=== PATIENT | female | born 1960 | race Caucasian/White ===

== ENCOUNTER 2017-08-19 16:07 | Outpatient (CLI) | payer OTHER ==
[2017-08-19 17:19] LABS: Hemoglobin 11.4 g/dL (12.0-16.0); Mean Corpuscular HGB CONC 33.2 g/dL (32.0-36.0); Mean Corpuscular Hemoglobin 31.4 pg (27.0-31.0); Mean Corpuscular Volume 94.5 fl (81.0-99.0); Mean Platelet Volume 6.9 fL (7.4-10.4); Platelet Count 301 thou/uL (130-400); RBC Distribution Width 11.2 % (11.5-14.5); Red Blood Cell (RBC) Count 3.63 mill/uL (4.20-5.40); White Blood Cell (WBC) Count 6.2 thou/uL (4.8-10.8)
[2017-08-19 17:43] LABS: ALT (SGPT) 15 U/L (8-55); AST (SGOT) 18 U/L (5-34); Albumin 4.2 g/dL (3.5-5.0); Alkaline Phosphatase 40 U/L (40-150); Anion Gap 10 mmol/L (10-20); BUN (Urea Nitrogen) 12 mg/dL (9.8-20.1); Bilirubin, Total 0.3 mg/dL (0.2-1.2); Calc. Creatinine Clearance 0 mL/min (70-130); Calcium 9.4 mg/dL (7.8-10.44); Carbon Dioxide 28 mmol/L (22-29); Chloride 102 mmol/L (98-107); Estimated GFR-MDRD 61; Globulin 2.8 g/dL (2.4-3.5); Glucose 85 mg/dL (70-105); Potassium 4.3 mmol/L (3.5-5.1); Sodium 136 mmol/L (136-145)
--- NOTE | 2017-08-20 15:58 | EKG ---
Test Reason : Blood Pressure : / mmHG Vent. Rate : 071 BPM Atrial Rate : 071 BPM P-R Int : 152 ms QRS Dur : 080 ms QT Int : 386 ms P-R-T Axes : 027 084 054 degrees QTc Int : 419 ms Normal sinus rhythm Moderate voltage criteria for LVH, may be normal variant Borderline ECG Confirmed by JIMENA CAMACHO ([id number]) on 08/20/2017 3:58:22 PM Referred By: JADIEL Confirmed By:JIMENA CAMACHO
== END 2017-08-19 16:08 | disposition home or self-care (01) ==
LOC: EDSTATUS 16:07 → LABBT 16:07
PROVIDERS: ATTEND Orthopaedic Surgery
DX: Z01.818 Encounter for other preprocedural examination (principal); S62.102A Fracture of unspecified carpal bone, left wrist, initial encounter for closed fracture
CPT/HCPCS: 80053; 85027; 93005; 93010

== ENCOUNTER 2017-08-20 07:25 | Day surgery (SDC) | payer OTHER ==
[2017-08-19 16:16] VITALS: BMI 21.3
[2017-08-20] MEDS ORDERED: CEFAZOLIN/Water 2 GM/20 ML SYRINGE ONE (08:23)
[2017-08-20] MEDS ORDERED: Fentanyl 100 MCG/2 ML VIAL ONE (08:36)
[2017-08-20] MEDS ORDERED: Midazolam HCl 2 mg/2 ml Vial ONE (08:36)
[2017-08-20] MEDS ORDERED: Ondansetron HCl/PF 4 MG/2 ML Vial IVP PRN (08:58)
[2017-08-20] MEDS ORDERED: HYDROcodone/Acetaminophen 10/325 mg Tablet PO PRN ×2 (08:58)
[2017-08-20] MEDS ORDERED: Promethazine HCl 25 MG/ML VIAL IM PRN (08:58)
[2017-08-20] MEDS ORDERED: Zolpidem Tartrate 5 MG TAB PO PRN (08:58)
[2017-08-20] MEDS ORDERED: traMADol HCl 50 MG TAB PO PRN ×2 (08:58)
[2017-08-20] MEDS ORDERED: Ropivacaine 0.2% 550 ML 550 ML NERVE BLCK SCH (08:58)
[2017-08-20] MEDS ORDERED: Ketorolac Tromethamine 30 MG/ML VIAL IVP PRN (08:58)
[2017-08-20] MEDS ORDERED: Fentanyl 100 MCG/2 ML VIAL IV PRN (08:59)
[2017-08-20] MEDS ORDERED: PROPOFOL 20 ML ONE (09:51)
[2017-08-20] MEDS ORDERED: Lidocaine 1% PF 5 ML VIAL ONE ×2 (09:51→17:00)
[2017-08-20] MEDS ORDERED: Ondansetron HCl/PF 4 MG/2 ML Vial ONE ×2 (09:51→17:00)
[2017-08-20] MEDS ORDERED: Dexamethasone 20 MG/5 ML VIAL ONE ×2 (10:01→17:00)
[2017-08-20] MEDS ORDERED: Metoclopramide HCl 10 MG/2 ML VIAL ONE ×2 (10:01→17:00)
[2017-08-20] MEDS ORDERED: ePHEDrine/0.9% NaCl/PF SYRINGE 50 mg/10 ml ONE ×2 (10:39→17:00)
--- NOTE | 2017-08-20 11:35 | RAD ---
LEFT WRIST THREE VIEWS: Indication: Fluoroscopic views were taken in OR during internal fixation procedure. IMPRESSION: Films demonstrate a plate and screws along the ventral surface of the distal radius transfixing the d istal radial fracture. POS: GILBERTO
--- NOTE | 2017-08-20 14:59 | OP ---
DATE OF PROCEDURE: 08/20/2017 PREOPERATIVE DIAGNOSIS: Left distal radius metaphyseal three-part T-type intra-articular distal radi us fracture. POSTOPERATIVE DIAGNOSIS: Left distal radius metaphyseal three-part T-type intraarticular distal radi us fracture. OPERATIVE PROCEDURE: Open reduction and internal fixation, left distal radius metaphyseal fracture. COMPONENTS USED: Synthes two column locking volar buttress plate, 2-hole construct. SURGEON: Tanner Key M.D. DIESEL ENGINE II PIPE FITTER: Lee Gould PA-C. ANESTHESIA: General via LMA augmented with indwelling supraclavicular peripheral nerve block. TOURNIQUET TIME: 25 minutes at 250 mmHg. FINDINGS: Three-part distal radius metaphyseal intra-articular T-type metaphyseal fracture. DRAINS: None. SPECIMENS: None. COMPLICATIONS: None. COUNTS: Correct. ESTIMATED BLOOD LOSS: Less than 10 mL. INDICATIONS FOR SURGERY: Gina is a 57-year-old white female who fell on outstretched left forearm a pproximately 2 days prior to admission. Plain radiographs demonstrated a distal radius metaphyseal f racture. She was treated with splints and sent to the office. She was scheduled for surgery and brian cted to proceed with surgical treatment of this problem. PROCEDURE IN DETAIL: After informed consent was obtained in the preoperative holding area, the patie nt was taken out suite where she received general anesthesia and preoperative antibiotics. [facility], LMA was placed and secured. The patient was positioned approp riately. Left upper extremity was then prepped and draped in usual sterile fashion and a well-padded tourniquet was placed over the proximal brachium. Prior to exsanguination, timeout was called and a ll members of the surgical team agreed on site, surgeon, and patient. Once this was completed, the e xtremity was exsanguinated, tourniquet was raised, remained for the remainder of the case. We then u sed a volar approach, radial longitudinal incision was made from the volar skin crease proximal appro ximately three and half fingerbreadths. We sharply dissected down to the flexor carpi radialis, this was pulled laterally. Then, a sharp dissection was carried out through the fascial plane, exposing the pronator quadratus muscle. This was swept using a monitored technique. Sharp dissection was car ried out to the edge of the radius through the pronator quadratus, this was then swept with periostea l elevators. Once this was completed, we sized her plate, provisional reduction performed. The plat e was placed provisionally with a center screw, plain radiographs were obtained in 2 planes, happy wi th a near anatomic reduction. We then placed our distal locking 2.0 screws. A total of 12-mm 2.5 co rtical screw was then used to firmly fix the plate to the diaphysis. Again, radiographs were obtaine d using intraoperative fluoroscopy and we had near anatomic reduction. After completion of all screw placements, tourniquet was dropped. All local bleeding was controlled with Bovie electrocautery. C opious saline irrigation was carried out. Primary closure was accomplished with interrupted 2-0 Vicr yl in the subcutaneous layer and horizontal mattress stitches were placed in the skin for reapproxima tion. Sterile dressing was applied. Volar splint was placed and the procedure was terminated withou t any complications. The patient was awakened in the operative suite and taken to recovery room in s table condition.
[2017-08-20] MEDS ORDERED: Ropivacaine 0.5% HCl/PF (150 MG/30 ML VIAL) ONE (16:35)
[2017-08-20] MEDS ORDERED: Ropivacaine 0.2% HCl/PF (40 MG/20 ML VIAL) ONE (16:35)
[2017-08-20] MEDS ORDERED: PROPOFOL 200 MG/20 ML VIAL ONE (17:00)
== END 2017-08-20 12:55 | disposition home or self-care (01) ==
LOC: SDC 07:25
PROVIDERS: ATTEND Orthopaedic Surgery
PROC: 0PSJ04Z Reposition Left Radius with Internal Fixation Device, Open Approach (ICD-10-PCS; principal; 2017-08-20)
DX: S52.572A Other intraarticular fracture of lower end of left radius, initial encounter for closed fracture (principal); I10 Essential (primary) hypertension; G43.909 Migraine, unspecified, not intractable, without status migrainosus; F32.9 Major depressive disorder, single episode, unspecified; M19.90 Unspecified osteoarthritis, unspecified site; E78.5 Hyperlipidemia, unspecified; Z79.82 Long term (current) use of aspirin; Z79.899 Other long term (current) drug therapy; Z98.82 Breast implant status; Z98.890 Other specified postprocedural states; W19.XXXA Unspecified fall, initial encounter; Y93.51 Activity, roller skating (inline) and skateboarding
CPT/HCPCS: 76001; A4306; C1713; J1100; J2001; J2250; J2405; J2704; J2765; J2795; J3010

== ENCOUNTER 2022-01-22 09:19 | Outpatient (CLI) | payer BC | END 2022-01-22 09:20 | disposition home or self-care (01) | LOC: BICMAMMO 09:19 | PROVIDERS: ATTEND Nurse Practitioner Family | DX: N63.10 Unspecified lump in the right breast, unspecified quadrant (principal) | CPT/HCPCS: 77066; G0279 ==

== ENCOUNTER 2023-01-08 09:45 | Outpatient (CLI) | payer BC | END 2023-01-08 09:46 | disposition home or self-care (01) | LOC: BICMAMMO 09:45 | PROVIDERS: ATTEND Nurse Practitioner Family | DX: Z13.820 Encounter for screening for osteoporosis (principal); Z78.0 Asymptomatic menopausal state; M81.0 Age-related osteoporosis without current pathological fracture; M85.851 Other specified disorders of bone density and structure, right thigh; M85.852 Other specified disorders of bone density and structure, left thigh | CPT/HCPCS: 77080 ==